=== PATIENT | female | born 1950 | race Caucasian/White ===

== ENCOUNTER 2018-03-25 00:45 | Outpatient (CLI) | payer MEDICARE, OTHER, SELFPAY ==
--- NOTE | 2018-03-25 08:20 | DI.MAMMO_ITS ---
SYMPTOMS/DIAGNOSIS: SCREENING, Z12.31 MAMMOGRAM: Mammograms were interpreted according to the usual protocol including computer analysis with CAD system, tomosynthesis and C view imaging. Comparison with prior examinations. Breast density C. No masses or microcalcifications are seen. There is nothing to suggest malignancy. IMPRESSION: Negative mammogram. Routine screening is recommended. Category I. MQSA ASSESSMENT OF FINDINGS: Negative. Category 1. Patient will receive a letter notifying them of these results. Bi-RADS category C. The breasts are heterogeneously dense, which may obscure small masses.
== END 2018-03-25 01:05 ==
PROVIDERS: PCP Internal Medicine; Visit Provider Nurse Practitioner Family
DX: Z12.31 Encounter for screening mammogram for malignant neoplasm of breast (principal)
CPT/HCPCS: 77063; 77067

== ENCOUNTER 2020-04-29 01:28 | Outpatient (CLI) | payer MEDICARE, OTHER, SELFPAY ==
--- NOTE | 2020-04-29 | DI.MAMMO_ITS ---
EXAM: MG MAMMO SCREENING CLINICAL HISTORY: SCREENING,Z12.39 TECHNIQUE: Mammograms were interpreted according to the usual protocol including computer analysis w [employer] CAD system, tomosynthesis and C-view imaging. COMPARISON: FINDINGS: The breasts are heterogeneously dense. No mass microcalcification is. Current examination is compar ed with previous examinations including March 2018 and there has been no gross interval change in appearance in comparison with the prior studies. IMPRESSION: No specific evidence of malignancy at this time. Routine screening examinations are suggested at yea rly intervals in this age group according to the ACS ACR guidelines. BI-RADS Category 1 - Negative Breast Density - Category C - Heterogeneously dense
== END 2020-04-29 01:48 ==
PROVIDERS: PCP Family Medicine; Visit Provider Family Medicine
DX: Z12.31 Encounter for screening mammogram for malignant neoplasm of breast (principal)
CPT/HCPCS: 77063; 77067

== ENCOUNTER → 2022-03-30 03:06 | Outpatient (CLI) | payer MEDICARE, SELFPAY ==
--- NOTE | 2022-03-30 07:45 | DI.MAMMO_ITS ---
Exam(s) MAMMO SCREENING EXAM: MAMMO SCREENING CLINICAL HISTORY: SCREENING, Z12.31 TECHNIQUE: Bilateral full field digital CC and MLO mammographic images were obtained with 3D tomosyn thesis and utilizing computer aided detection (CAD). COMPARISON: Available for comparison. FINDINGS: Masses/Architectural Distortion: None seen. Microcalcifications: No suspicious pleomorphic-type are seen. Skin Thickening/Nipple Retraction: None. IMPRESSION: 1. No significant interval change with no specific features of malignancy noted. 2. Unless there is more urgent need, screening mammography is recommended, as per [employer] guidelines. BI-RADS Category 1 - Negative Breast Density - Category C - Heterogeneously dense Breast density category C or D implies that the patient has dense breast tissue. Dense breast tissue is very common and is not abnormal but dense breast tissue can make it harder to find cancer on a ma mmogram. Also, dense breast tissue may increase their breast cancer risk. This information about the result of the mammogram report was provided to the patient to raise their awareness. Use this report when you speak with the patient about their risks for breast cancer, which includes their family hist ory. At that time, you may recommend for more screening tests (Ultrasound or MRI) as they might be us eful based on their risk. A negative radiographic report should not delay biopsy if a dominant or clinically suspicious mass is present. Up to ten percent of cancers are not identified on mammography. A negative report may reinforce clinical impression. Adenosis and dense breasts may obscure an underlying neoplasm. False positive reports average 6 to 10%. Patient will receive a letter notifying them of these results.
== END ==
PROVIDERS: PCP Family Medicine; Visit Provider Family Medicine
DX: Z12.31 Encounter for screening mammogram for malignant neoplasm of breast (principal); R92.8 Other abnormal and inconclusive findings on diagnostic imaging of breast
CPT/HCPCS: 77063; 77067

== ENCOUNTER 2023-05-31 23:09 | Emergency (ER) | payer MEDICARE, SELFPAY ==
[2023-05-31] VITALS (10 sets, daily range): BP systolic 105–126; BP diastolic 37–41; PULSE 77–101; RESP 12–26; TEMP 37.8; O2SAT 94
--- NOTE | 2023-05-31 23:07 | ED.GENADUL_ITS ---
Discharge Plan Disposition Patient Disposition: Home Condition: Improving Discharge Details Clinical Impression: Influenza, Pneumonia, Acute hypokalemia Primary Care Provider: Marilia Curran ED Provider: Lenny Morales Meds and New Rx's Prescriptions: New amoxicillin-pot clavulanate [Augmentin] 500-125 mg tablet 1 tab PO BID 10 Days Qty: 20 0RF ondansetron 4 mg tablet,disintegrating 4 mg PO BID-TID PRN (Reason: nausea and vomiting) Qty: 20 0RF Continued potassium gluconate 99 MG tablet 99 mg PO DAILY triamterene-hydrochlorothiazid 1 EACH tablet 1 tab-cap PO DAILY phenazopyridine [Pyridium] 200 MG tablet 200 mg PO TID Qty: 6 Rx Instructions: 1 tab PO every 8 hrs for 2 days Discontinued cholecalciferol (vitamin D3) [Vitamin D3] 1,000 UNIT capsule 1,000 unit PO DAILY Discharge Instructions Instructions: Hypokalemia (ED), Influenza (ED), Pneumonia (ED) Referrals: Marilia Curran [Primary Care Provider] - 3 days Discharge Data Discharge Physician: Lenny Morales Medical Decision Making MDM: Summary: Patient presented to the emergency department after she was diagnosed with the influenza be yesterday but despite that she still feeling achy coughing but denies any shortness of breath states that she has an appetite and. Here she had high pulse and was febrile so she was given sepsis protocol with 30 cc/kg dose of IV fluids blood cultures and lactic acid which was negative. She does not have a white count but a chest x-ray was done here in the emergency department she has a right upper lobe infiltrate compatible with pneumonia. She is not hypoxic and states that she rather go home. She was given IV ceftriaxone and feels much better after receiving Zofran. She will be discharged home on Augmentin and will need to follow closely with her doctor and she is stated if she gets short of breath she is to return to the emergency department for reevaluation and possibly admission. Data Review Analysis All the data on this patient was reviewed by me including laboratory and imaging studies as well as bedside studies performed by me Independent review of Studies Imaging Chest x-ray shows a right upper lobe infiltrate Lab: Labs do not show white count elevation but do show hypokalemia Risk Stratification: Patient with community-acquired pneumonia who would be given ceftriaxone and will be discharged on p.o. antibiotics due to the fact that she is not hypoxic. I told her to continue drinking fluids she is to be discharged also on Zofran and if not better to return to the emergency department for reevaluation and admission. Differential Diagnosis: 1. Community-acquired pneumonia 2. Influenza B 3. COVID-19 infection 4. Sepsis 5. Consultants: Shared disposition: Patient understands and wants to go home and states that she feels much better Impression: Medical Records Medical records reviewed: Yes I reviewed the patient's medical records. Imaging Data Radiologic Study: Imaging: X-Ray My impression: Right upper lobe infiltrate compatible with pneumonia Lab Data Lab results reviewed: Yes I reviewed the patient's lab results. HPI General Date/Time Provider Initiated Documentation: 05/31/23 23:14 . HPI Narrative: Patient presents emergency department complaining of cough congestion not feeling well with episodes of nausea vomiting coughing nonproductive sputum. Reports he went to the urgent care center yesterday they told she had influenza a. Today she comes to the emergency department for she is not feeling well. Related Data Home Medications Medication Instructions Recorded Confirmed potassium gluconate 595 mg (99 mg) 99 mg PO DAILY 07/07/16 03/15/18 tablet triamterene 37.5 1 tab-cap PO DAILY 07/07/16 03/15/18 mg-hydrochlorothiazide 25 mg tablet phenazopyridine 200 mg tablet 200 mg PO TID #6 tab-caps 10/18/16 03/15/18 (Pyridium) amoxicillin 500 mg-potassium 1 tab PO BID 10 days #20 tabs 06/01/23 clavulanate 125 mg tablet (Augmentin) ondansetron 4 mg disintegrating 4 mg PO BID-TID PRN nausea and 06/01/23 tablet vomiting #20 tabs Previous Rx's Medication Instructions Recorded amoxicillin 500 mg-potassium 1 tab PO BID 10 days #20 tabs 06/01/23 clavulanate 125 mg tablet (Augmentin) ondansetron 4 mg disintegrating 4 mg PO BID-TID PRN nausea and 06/01/23 tablet vomiting #20 tabs Allergies Allergy/AdvReac Type Severity Reaction Status Date / Time No Known Allergies Allergy Unverified 07/07/16 13:59 Review of Systems Narrative: Review of Systems: Constitutional: No fevers, chills, sweats Eye: No recent visual problems ENT: No ear pain, nasal congestion, sore throat Respiratory: No shortness of breath, Cardiovascular: No Chest pain, palpitations, syncope Gastrointestinal: No diarrhea Genitourinary: No hematuria Lenard/Lymph: Negative for bruising tendency, swollen lymph glands Endocrine: Negative for excessive thirst, excessive hunger Musculoskeletal: No back pain, neck pain, joint pain, muscle pain, decreased range of motion Integumentary: No rash, pruritus, abrasions Neurologic: Alert & oriented X 4 Psychiatric: No anxiety, depression PFSH All Active Problems (Updated 06/01/23 @ 01:17 by Lenny Morales MD) Acute hypokalemia (Acute) Pneumonia (Acute) Influenza (Acute) Hypopotassemia (Acute 07/09/14) Nausea with vomiting (Acute 07/09/14) Hypomagnesemia (Acute 07/09/14) H/O surgical procedure (Chronic) a. b. Wrist surgery for fx History of tobacco use (Chronic) Overweight (Chronic) Rosacea (Chronic) Atrial fibrillation (Acute 07/09/14) Dizziness (Acute 07/09/14) Social History Smoking/Tobacco Use Status: Former Tobacco Use Smoking risk assessment performed?: Yes Drug use: Never Exam Narrative Exam Narrative: Exam; vitals signs as reported above normal Constitutional; In no acute distress, afebrile General: cooperative, healthy appearing, comfortable and no acute distress HEENT: Head: normal to inspection, no palpable skull fracture and normocephalic atraumatic Eyes: : appearance normal, both eyes and all related structures EOM intact bilaterally Pupils: PERRL : conjunctiva normal Direct ophthalmoscopy: normal light reflex, normal conjunctiva, normal visual acuity Ears: Normal TM, normal external canal Nose: normal no rhinorreha Neck no JVD, supple non tender Neck: normal visual inspection, full ROM and no lymphadenopathy Chest: normal inspection of the chest Respiratory : normal respiratory effort and able to speak in complete sentences no wheezing no rales Cardio Rate: regular rate, rhythm: regular rhythm normal heart sounds S1 and S2 no murmurs, gallops, or rubs GI : normal to inspection, normal bowel sounds, soft, non tender, non distended, no organomegaly Back/Spine/ no CVA tenderness Thoracic/Lumbar Spine: no tenderness or deformities Skin no rashes or lesions Neuro: patient alert oriented x 4 and no meningeal signs, Cranial Nerves: CN's II-XI intact bilaterally, Cognition: normal cognition, Speech: speech normal, Gait: normal gait, Depp tendon reflexes normal 2+ muscle strength 5/5 bilaterally Extremities, no edema, full range of motion, normal strength Vital Signs and Lab Results Vital Signs Most Recent Vital Signs in EMR: Most Recent Vital Signs Temp Pulse Resp BP Pulse Ox 37.8 C H 101 H 16 126/41 L 94 05/31/23 23:06 05/31/23 23:06 05/31/23 23:06 05/31/23 23:06 05/31/23 23:06 Lab Results 05/31/23 23:23 05/31/23 23:23 Blood Type / Crossmatch: 2 No Data to Display Complete Blood Count: 2 White Blood Count 10.60 10^3/uL (4.4-10.8) 05/31/23 23:23 Red Blood Count 3.98 10^6/uL (3.93-5.22) 05/31/23 23:23 Hemoglobin 11.8 g/dL (11.2-15.7) 05/31/23 23:23 Hematocrit 34.1 % (36.0-46.0) L 05/31/23 23:23 Platelet Count 234 10^3/uL (130-400) 05/31/23 23:23 Venous Blood Lactate 1.1 mmol/L (0.6-1.4) 05/31/23 23:23 Complete Metabolic Panel: 2 Sodium 129 mmol/L (136-145) L 05/31/23 23:23 Potassium 2.9 mmol/L (3.5-5.1) L* 05/31/23 23:23 Chloride 95 mmol/L (98-107) L 05/31/23 23:23 Carbon Dioxide 23.9 mmol/L (21.0-32.0) 05/31/23 23:23 BUN 10 mg/dL (7-18) 05/31/23 23:23 Creatinine 0.8 mg/dL (0.55-1.02) 05/31/23 23:23 Est GFR (CKD-EPI 2020) 78.24 (mL/min/1.73m2) 05/31/23 23:23 Calcium 8.2 mg/dL (8.5-10.1) L 05/31/23 23:23 Albumin 2.4 g/dL (3.4-5.0) L 05/31/23 23:23 Glucose 122 mg/dL (74-106) H 05/31/23 23:23 Liver Function Panel: 2 Alanine Aminotransferase (ALT/SGPT) 29 U/L (14-59) 05/31/23 23: 23 Aspartate Amino Transf (AST/SGOT) 33 U/L (15-37) 05/31/23 23:23 Coagulation Panel: 2 No Data to Display Cardiac Panel: 2 No Data to Display Arterial Blood Gas: 2 No Data to Display Venous Blood Gas: 2 No Data to Display Pancreas Panel: 2 No Data to Display Thyroid Panel: 2 No Data to Display Infectious Disease: 2 No Data to Display Blood Cultures: 2 No Data to Display Toxicology Panel: 2 No Data to Display
[2023-05-31] MEDS: Lactated Ringers 1,000 ML 2000 ML IV (23:26)
[2023-05-31 23:27] LABS: Abs Immature Grans 0.05 10^3/uL (0.0-0.06); Absolute Basophil Count 0.02 10^3/uL (0.0-0.2); Absolute Eosinophil Count 0.01 10^3/uL (0.0-0.7); Absolute Lymphocyte Count 0.77 10^3/uL (1.2-3.4); Absolute Monocyte Count 0.84 10^3/uL (0.1-0.8); Absolute Neutrophil Count 8.91 10^3/uL (1.2-6.7); Basophils % 0.2; Eosinophils % 0.1; HCT 34.1 % (36.0-46.0); HGB 11.8 g/dL (11.2-15.7); Immature Grans % 0.5; Lactate 1.1 mmol/L (0.6-1.4); Lymphocytes % 7.3; MCH 29.6 pg (27.0-33.0); MCHC 34.6 % (32.0-36.0); MCV 86 fL (80-95); Monocytes % 7.9; Platelet Count 234 10^3/uL (130-400); RBC 3.98 10^6/uL (3.93-5.22); RDW 12.6 % (11.7-14.6); RDW-SD 39.7 fL
[2023-05-31 23:43] LABS: ALT 29 U/L (14-59); AST 33 U/L (15-37); Albumin 2.4 g/dL (3.4-5.0); Alkaline Phosphatase 77 U/L (46-116); Anion Gap 10.1 mmol/L (3-11); BUN 10 mg/dL (7-18); Bilirubin, Total 0.9 mg/dL (0.2-1.0); CO2 23.9 mmol/L (21.0-32.0); CREATININE 0.8 mg/dL (0.55-1.02); Calcium 8.2 mg/dL (8.5-10.1); Chloride 95 mmol/L (98-107); Estimated GFR 78.24 (mL/min/1.73m2); Glucose 122 mg/dL (74-106); Sodium 129 mmol/L (136-145); Total Protein 7.2 g/dL (6.4-8.2)
[2023-05-31 23:45] LABS: Potassium 2.9 mmol/L (3.5-5.1)
[2023-06-01] VITALS (26 sets, daily range): BP systolic 100–119; BP diastolic 39–49; PULSE 72–82; RESP 15–27; TEMP 37.2; O2SAT 94
--- NOTE | 2023-06-01 00:22 | DI.RAD_ITS ---
Exam(s) XR PORTABLE CHEST AP EXAM: XR PORTABLE CHEST AP CLINICAL HISTORY: cough TECHNIQUE: 2D digital imaging was performed of the chest. One image was obtained. An AP view was ob tained. COMPARISON: No exams were available for comparison FINDINGS: MEDIASTINUM: Normal. HEART: Normal. PULMONARY VASCULATURE: Normal. LUNGS: There is a right upper lobe infiltrate with air bronchograms consistent with pneumonia. There is a small infiltrate in the left lung base which may represent atelectasis or pneumonia. PLEURAL SPACE: No pleural effusion or pneumothorax. BONE:Within normal limits for the patient's age. OTHER FINDINGS:Normal. IMPRESSION: 1. Right upper lobe pneumonia. 2. Left basilar infiltrate which may represent atelectasis or pneumonia. DATA REPOSITORY: RADIATION DOSE DELIVERED:
[2023-06-01] MEDS: Potassium Chloride 20 MEQ TABCR PO (00:37)
[2023-06-01] MEDS: POTASSIUM CHLORIDE 10 MEQ/100 ML BAG 100 MEQ IVPB (00:38)
--- NOTE | 2023-06-01 00:58 | DI.VRAD_ITS ---
PROCEDURE INFORMATION: Exam: XR Chest Exam date and time: 06/01/2023 12:31 AM Age: 73 years old Clinical indication: Cough TECHNIQUE: Imaging protocol: Radiologic exam of the chest. Views: 1 view. COMPARISON: No relevant prior studies available. FINDINGS: Lungs: Airspace disease is seen in the right upper lobe consistent with pneumonia. Small focus of consolidation is also seen at the left lung base. Pleural spaces: Unremarkable. No pleural effusion. No pneumothorax. Heart/Mediastinum: Unremarkable. No cardiomegaly. Bones/joints: Age related osseous changes. IMPRESSION: Right upper lobe pneumonia and small region of patchy consolidation at the left lung base which may be atelectasis or pneumonia. Dictated and Authenticated by: Shikha Livingston MD. Ordering:PHYLLIS Galvez MD
[2023-06-01] MEDS: cefTRIAXone 1,000 MG in Normal Saline 50 ML 100 MG IVPB (01:44)
--- NOTE | 2023-06-01 13:27 | W.ED.FU ---
Date of service: 05/31/23 Follow Up Plan: I received a phone call today from the Department of Health. They are investigating and following a Legionella case. During their investigation, they discovered that the patient was in a hot tub with the confirmed case of Legionella. Given her presentation to the emergency department and her recent diagnosis of pneumonia, this becomes highly suspicious for a Legionella infection. I reviewed her discharge and noted that she was discharged on Augmentin. I will change antibiotics to levofloxacin. I have called the patient and discussed this plan with her. She states that she is feeling better than yesterday. She has a follow-up appointment with her primary care provider on Sunday. If she starts to feel worse or is not tolerating medication, she understands that she needs to return to the emergency department as this infection can increase in severity quickly
== END 2023-06-01 02:32 | disposition home or self-care (01) ==
PROVIDERS: Emergency Provider Emergency Medicine Emergency Medical Services; PCP Family Medicine
DX: R11.2 Nausea with vomiting, unspecified (principal); R19.7 Diarrhea, unspecified; J11.1 Influenza due to unidentified influenza virus with other respiratory manifestations; J18.9 Pneumonia, unspecified organism; E87.6 Hypokalemia
CPT/HCPCS: 36415; 80053; 96361; 96365; 96368; 99284; 71045; 83605; 85025; J0696; J3480

== ENCOUNTER 2024-06-04 02:30 | Outpatient (CLI) | payer MEDICARE, SELFPAY ==
[2024-06-04 07:47] LABS: Abs Immature Grans 0.01 10^3/uL (0.0-0.06); Absolute Basophil Count 0.05 10^3/uL (0.0-0.2); Absolute Eosinophil Count 0.18 10^3/uL (0.0-0.7); Absolute Lymphocyte Count 1.84 10^3/uL (1.2-3.4); Absolute Monocyte Count 0.54 10^3/uL (0.1-0.8); Absolute Neutrophil Count 2.87 10^3/uL (1.2-6.7); Basophils % 0.9 %; Eosinophils % 3.3 %; HCT 43.1 % (36.0-46.0); HGB 13.8 g/dL (11.2-15.7); Immature Grans % 0.2 %; Lymphocytes % 33.5 %; MCH 29.9 pg (27.0-33.0); MCV 94 fL (80-95); MPV 9.9 fL (8.0-11.0); Monocytes % 9.8 %; Neutrophils % 52.3 %; Platelet Count 247 10^3/uL (130-400); RBC 4.61 10^6/uL (3.93-5.22); RDW-SD 44.6 fL; WBC 5.49 10^3/uL (4.4-10.8)
[2024-06-04 07:57] LABS: Hemoglobin A1C 5.9 % (<5.7)
[2024-06-04 08:00] LABS: ALT 31 U/L (14-59); AST 27 U/L (15-37); Albumin 3.6 g/dL (3.4-5.0); Alkaline Phosphatase 70 U/L (46-116); Anion Gap 6.1 mmol/L (3-11); BUN 15 mg/dL (7-18); Bilirubin, Total 0.35 mg/dL (0.2-1.0); CO2 30.9 mmol/L (21.0-32.0); CREATININE 0.8 mg/dL (0.55-1.02); Calcium 9.1 mg/dL (8.5-10.1); Calculated LDL 153 mg/dL (<100); Chloride 106 mmol/L (98-107); Cholesterol 239 mg/dL (<200); Estimated GFR 77.75 (mL/min/1.73m2); Glucose 102 mg/dL (74-106); HDL Cholesterol 69 mg/dL (40-60); Potassium 4.1 mmol/L (3.5-5.1); Sodium 143 mmol/L (136-145); Total Protein 7.8 g/dL (6.4-8.2); Triglyceride 87 mg/dL (<150)
[2024-06-04 08:15] LABS: C-Reactive Protein < 0.50 mg/dL (<or=0.5)
== END 2024-06-04 02:31 | disposition home or self-care (01) ==
PROVIDERS: PCP Family Medicine; Visit Provider Registered Nurse
DX: R74.8 Abnormal levels of other serum enzymes (principal); R73.01 Impaired fasting glucose
CPT/HCPCS: 36415; 80053; 80061; 83036; 85025; 86140